=== PATIENT | male | born 1975 | race African-American/Black ===

== ENCOUNTER 2017-10-14 14:30 | Emergency (ER) | payer BC ==
--- NOTE | 2017-10-14 14:59 | EDM.PDOC ---
ED HPI GENERAL MEDICAL PROBLEM - General Chief Complaint: Respiratory Problem Stated Complaint: COUGH Time Seen by Provider: 10/14/17 14:31 Source of Information: Reports: Patient History Limitations: Reports: No Limitations - History of Present Illness INITIAL COMMENTS - FREE TEXT/NARRATIVE: HISTORY AND PHYSICAL: History of present illness: Patient is a 41-year-old male who presents to the emergency room today with complaints of fever, cough and body aches. He states he was seen at the clinic yesterday and was diagnosed with influenza and put on Tamiflu. Has had 2 doses of the Tamiflu. He presents today to the emergency room as he states he does not feel any better. He is concerned as he still has a "high fever and cough" and thinks he may have pneumonia. He denies any chest pain, shortness of breath, abdominal pain, nausea, vomiting or diarrhea. Review of systems: As per history of present illness and below otherwise all systems reviewed and negative. Past medical history: As per history of present illness and as reviewed below otherwise noncontributory. Surgical history: As per history of present illness and as reviewed below otherwise noncontributory. Social history: No reported history of drug or alcohol abuse. Family history: As per history of present illness and as reviewed below otherwise noncontributory. Physical exam: General: Well-developed and well-nourished 41-year-old male. Appears in no acute distress. Alert and oriented. HEENT: Atraumatic, normocephalic, pupils reactive, negative for conjunctival pallor or scleral icterus, mucous membranes moist, throat clear, neck supple, nontender, trachea midline. Lungs: Fine expiratory wheezing noted to posterior bases bilaterally otherwise clear, breath sounds equal bilaterally, chest nontender. Heart: S1S2, regular rate and rhythm Abdomen: Soft, nondistended, nontender. Negative for masses or hepatosplenomegaly. Negative for costovertebral tenderness. Pelvis: Stable nontender. Genitourinary: Deferred. Rectal: Deferred. Extremities: Atraumatic, moves all extremities per self without difficulty or deficits, negative for cords or calf pain. Neurovascular unremarkable. Neuro: Awake, alert, oriented. Cranial nerves II through XII unremarkable. Cerebellum unremarkable. Motor and sensory unremarkable throughout. Exam nonfocal. X-ray does not show any infiltrate or sign of pneumonia. Patient was reassured and education was given on influenza and Tamiflu. Supportive care measures were discussed with him. Patient voices understanding and is agreeable to plan of care. He denies any questions at this time. Diagnostics: Chest x-ray Therapeutics: [] Impression: 1. Encounter for medical screening 2. History of influenza Plan: 1. Your chest x-ray is normal. It shows no sign of pneumonia. As we discussed the Tamiflu does not cure the flu. Unfortunately you may continue to have symptoms of the flu over 5-14 days: which may include body aches, fever, and cough. Continue to take the Tamiflu as it may shorten the duration of the virus. 2. Supportive care measures such as Tylenol and/or ibuprofen as needed for pain and fever management. Encourage plenty of fluids to prevent dehydration. Get plenty of Rest. 3. Please follow-up with her primary care provider in the next couple days. Return to the ED as needed and as discussed. Definitive disposition and diagnosis as appropriate pending reevaluation and review of above. Duration: Day(s): Location: Reports: Chest Body Aches Pain Score (Numeric/FACES): 7 - Related Data Allergies Allergy/AdvReac Type Severity Reaction Status Date / Time No Known Allergies Allergy Verified 10/14/17 14:51 Home Meds: Home Meds Oseltamivir [Tamiflu] 75 mg PO BID 10/14/17 [History] ED ROS GENERAL - Review of Systems Review Of Systems: ROS reveals no pertinent complaints other than HPI. ED EXAM, GENERAL - Physical Exam Exam: See Below (See dictation) Course - Vital Signs Last Recorded V/S: Last Vital Signs Temp 99.0 F 10/14/17 14:51 Pulse 92 10/14/17 14:51 Resp 18 10/14/17 14:51 BP 126/62 10/14/17 14:51 Pulse Ox 97 10/14/17 14:51 Departure - Departure Time of Disposition: 15:28 Disposition: Home, Self-Care 01 Clinical Impression: Encounter for medical screening examination, History of influenza - Discharge Information Referrals: PCP,None [Primary Care Provider] - Forms: ED Department Discharge Additional Instructions: My general discharge The following information is given to patients seen in the emergency department who are being discharged to home. This information is to outline your options for follow-up care. We provide all patients seen in our emergency department with a follow-up referral. The need for follow-up, as well as the timing and circumstances, are variable depending upon the specifics of your emergency department visit. If you don't have a primary care physician on staff, we will provide you with a referral. We always advise you to contact your personal physician following an emergency department visit to inform them of the circumstance of the visit and for follow-up with them and/or the need for any referrals to a consulting specialist. The emergency department will also refer you to a specialist when appropriate. This referral assures that you have the opportunity for follow-up care with a specialist. All of these measure are taken in an effort to provide you with optimal care, which includes your follow-up. Under all circumstances we always encourage you to contact your private physician who remains a resource for coordinating your care. When calling for follow-up care, please make the office aware that this follow-up is from your recent emergency room visit. If for any reason you are refused follow-up, please contact the [facility] Emergency Department at and asked to speak to the emergency department charge nurse. [facility] [address] [place] [id number] 1. Your chest x-ray is normal. It shows no sign of pneumonia. As we discussed the Tamiflu does not cure the flu. Unfortunately you may continue to have symptoms of the flu over 5-14 days: which may include body aches, fever, and cough. Continue to take the Tamiflu as it may shorten the duration of the virus. 2. Supportive care measures such as Tylenol and/or ibuprofen as needed for pain and fever management. Encourage plenty of fluids to prevent dehydration. Get plenty of Rest. 3. Please follow-up with her primary care provider in the next couple days. Return to the ED as needed and as discussed.
--- NOTE | 2017-10-14 15:18 | CR ---
EXAMINATION: Two-view chest (PA and Lateral views). HISTORY: Shortness of breath. FINDINGS: The trachea is midline. The cardiomediastinal silhouette is within normal limits. No pulmonary infilt rates, effusions or pneumothorax. Osseous structures appear unremarkable. IMPRESSION: No acute cardiopulmonary process.
== END 2017-10-14 15:35 | disposition home or self-care (01) ==
LOC: MW.ED 14:30
DX: J11.1 Influenza due to unidentified influenza virus with other respiratory manifestations (principal)
CPT/HCPCS: 71046; 71046-26; 99283